=== PATIENT | female | born 1975 | race Hispanic/Latino ===

== ENCOUNTER 2021-07-06 14:53 | Emergency (ER) | payer SELFPAY ==
[~2021-07-06] VITALS: Ht 149.9 cm; Wt 61.2 kg
[2021-07-06 14:54] VITALS: BP 115/87
[2021-07-06 15:29] LABS: BASOPHILS % (AUTO) 0.5 % (0.0-5.0); EOSINOPHILS % (AUTO) 1.1 % (0.0-8.0); HEMATOCRIT 38.9 % (36-48); LYMPHOCYTES % (AUTO) 18.5 % (21.0-51.0); MEAN CORPUSCULAR HEMOGLOBIN 30.8 pg (27.0-33.0); MEAN CORPUSCULAR HGB CONC 33.7 g/dL (32.0-36.0); MEAN CORPUSCULAR VOLUME 91.3 fL (79-99); MONOCYTES % (AUTO) 6.2 % (3.0-13.0); NEUTROPHILS % (AUTO) 73.2 % (40.0-77.0); PLATELET COUNT (AUTO) 280 K/uL (130-400); RED BLOOD CELL COUNT(AUTO) 4.26 MIL/uL (4.00-5.50); RED CELL DISTRIBUTION WIDTH 12.2 % (11.0-15.5); WHITE BLOOD COUNT (AUTO) 12.3 K/uL (4.8-10.8)
[2021-07-06 15:30] LABS: APPEARANCE,URINE Turbid (CLEAR); BILIRUBIN,URINE Negative (NEGATIVE); COLOR,URINE Yellow (YELLOW); GLUCOSE, URINE (UA) Negative (NEGATIVE); KETONES,URINE Negative (NEGATIVE); LEUKOCYTE ESTERASE ,URINE Large (NEGATIVE); NITRATE,URINE Negative (NEGATIVE); OCCULT BLOOD,URINE Negative (NEGATIVE); PROTEIN,URINE Negative (NEGATIVE)
[2021-07-06 15:32] LABS: HCG,QUAL RESULT NEGATIVE (NEGATIVE)
[2021-07-06 15:37] LABS: AMPHET/METH SCREEN,URINE NEGATIVE (NEGATIVE); BARBITURATE SCREEN, URINE NEGATIVE (NEGATIVE); BENZODIAZEPINES SCREEN,URINE NEGATIVE (NEGATIVE); CANNABINOID SCREEN,URINE NEGATIVE (NEGATIVE); COCAINE SCREEN,URINE NEGATIVE (NEGATIVE); OPIATE SCREEN,URINE NEGATIVE (NEGATIVE); PHENCYCLIDINE SCREEN,URINE NEGATIVE (NEGATIVE)
[2021-07-06 15:40] LABS: POTASSIUM 3.6 mmol/L (3.5-5.1)
[2021-07-06 15:50] LABS: ALBUMIN 3.8 g/dL (3.5-5.0); BILIRUBIN,TOTAL 0.2 mg/dL (0.2-1.0); TOTAL PROTEIN, SERUM 7.8 g/dL (6.0-8.3)
[2021-07-06 16:01] LABS: AMORPHOUS SEDIMENT,UR Moderate /LPF (None Seen); BACTERIA,URINE Few /HPF (None Seen); MUCUS,URINE Few LPF (None Seen); SQUAMOUS EPITHELIAL CELL,UR Few /HPF (0-2)
[2021-07-06] MEDS ORDERED: KETOROLAC 30MG VIAL (30MG/ML) ONE (16:11)
[2021-07-06] MEDS ORDERED: CEFTRIAXONE 1G VIAL ONE (16:11)
[2021-07-06] MEDS ORDERED: 0.9%NACL 1000ML 1,000 ML IV ONE ×3 (16:11→16:34)
[2021-07-06] MEDS ORDERED: ONDANSETRON 4MG INJ ONE (16:28)
[2021-07-06] MEDS ORDERED: CEFTRIAXONE 1G VIAL IVP ONE (16:30)
[2021-07-06] MEDS ORDERED: KETOROLAC 30MG VIAL (30MG/ML) IVP ONE (16:30)
[2021-07-06] MEDS ORDERED: ONDANSETRON 4MG INJ IVP ONE (16:30)
[2021-07-06] MEDS ORDERED: PHEN-847 PO (17:41)
[2021-07-06] MEDS ORDERED: TRAM50TA4 PO (17:41)
[2021-07-06] MEDS ORDERED: ONDA4TAB10 PO (17:41)
[2021-07-06] MEDS ORDERED: CEFD300C3 PO (17:41)
== END 2021-07-06 18:31 | disposition home or self-care (01) ==
LOC: EDH 14:53
DX: N39.0 Urinary tract infection, site not specified (principal); Z79.1 Long term (current) use of non-steroidal anti-inflammatories (NSAID); Z79.899 Other long term (current) drug therapy
CPT/HCPCS: 36415; 80053; 80305; 81001; 81025; 82150; 83690; 84702; 85025; 87077; 87088; 87186; 96361; 96374; 96375; 99284; J0696; J1885; J2405; J7030 ×2

== ENCOUNTER 2022-09-20 14:56 | Emergency (ER) | payer OTHER ==
[~2022-09-20] VITALS: Ht 167.6 cm; Wt 81.6 kg
[~2022-09-20 14:56] MED LIST: CEFD300C3 PO; ONDA4TAB10 PO; PHEN-847 PO; TRAM50TA4 PO
[2022-09-20 15:00] VITALS: BP 130/83
[2022-09-20] MEDS ORDERED: KETOROLAC 30MG VIAL (30MG/ML) IVP ONE (17:30)
[2022-09-20] MEDS ORDERED: HYDROCODONE/ACETAMINOPHEN 5/325 MG TAB PO ONE (17:30)
[2022-09-20] MEDS ORDERED: ONDANSETRON 4MG INJ ONE (18:32)
[2022-09-20] MEDS ORDERED: IBUP-2070 PO (18:49)
[2022-09-20] MEDS ORDERED: CYCL5TAB PO (18:49)
== END 2022-09-20 19:01 | disposition home or self-care (01) ==
LOC: EDH 14:56
DX: S16.1XXA Strain of muscle, fascia and tendon at neck level, initial encounter (principal); S20.219A Contusion of unspecified front wall of thorax, initial encounter; R51.9 Headache, unspecified; Z79.899 Other long term (current) drug therapy; V89.2XXA Person injured in unspecified motor-vehicle accident, traffic, initial encounter; Y93.89 Activity, other specified; Y92.89 Other specified places as the place of occurrence of the external cause; Y99.8 Other external cause status
CPT/HCPCS: 99285; 70450; 96365; 96375; 72125; 71250; J2405; J1885